=== PATIENT | female | born 1985 | race Caucasian/White ===

== ENCOUNTER 2018-03-29 14:51 | Emergency (ER) | payer SELFPAY ==
--- NOTE | 2018-03-29 15:20 | EDM.PDOC ---
ED HPI GENERAL MEDICAL PROBLEM - General Chief Complaint: Genitourinary Problem Stated Complaint: POSSIBLE UTI Time Seen by Provider: 03/29/18 15:02 Source of Information: Reports: Patient History Limitations: Reports: No Limitations - History of Present Illness INITIAL COMMENTS - FREE TEXT/NARRATIVE: HISTORY AND PHYSICAL: History of present illness: Patient is a 32-year-old female who complains of dysuria for the past 3-4 weeks. She states she had taken some leftover children's antibiotics to help alleviate her symptoms but they are still present. She had not seen a medical provider due to insurance complications. She denies any fever, chills, chest pain, shortness of breath or cough. Denies any abdominal pain, nausea, vomiting, diarrhea or constipation. She denies any concerns for STDs. No vaginal discharge, itching, odor or lesions. Currently on menstraul period Review of systems: As per history of present illness and below otherwise all systems reviewed and negative. Past medical history: As per history of present illness and as reviewed below otherwise noncontributory. Surgical history: As per history of present illness and as reviewed below otherwise noncontributory. Social history: No reported history of drug or alcohol abuse. Family history: As per history of present illness and as reviewed below otherwise noncontributory. Physical exam: General: Well-developed and well-nourished 32-year-old female. Alert and oriented. Nontoxic appearing and in no acute distress. HEENT: Atraumatic, normocephalic, pupils equal and reactive bilaterally, negative for conjunctival pallor or scleral icterus, mucous membranes moist, throat clear, neck supple, nontender, trachea midline. No drooling or trismus noted. No meningeal signs Lungs: Clear to auscultation, breath sounds equal bilaterally, chest nontender. Heart: S1S2, regular rate and rhythm without overt murmur Abdomen: Soft, nondistended, nontender. Negative for masses or hepatosplenomegaly. Negative for costovertebral tenderness. Pelvis: Stable nontender. Genitourinary: Deferred. Rectal: Deferred. Skin: Intact, warm, dry. No lesions or rashes noted. Extremities: Atraumatic, negative for cords or calf pain. Neurovascular unremarkable. Neuro: Awake, alert, oriented. Cranial nerves II through XII unremarkable. Cerebellum unremarkable. Motor and sensory unremarkable throughout. Exam nonfocal. Notes: Diagnostics: UA, HCGU, UC Therapeutics: None Prescription: Bactrim DS x 7 days Pyridium TID Impression: UTI Plan: 1. Take your prescriptions as directed. 2. Tylenol and/or Ibuprofen as needed for pain. Increase your oral fluids 3. Follow up with your primary care provider in the next 1-2 days. Return to the ED as needed as discussed. Definitive disposition and diagnosis as appropriate pending reevaluation and review of above. Duration: Week(s): pelvic area Pain Score (Numeric/FACES): 3 - Related Data Allergies Allergy/AdvReac Type Severity Reaction Status Date / Time No Known Allergies Allergy Verified 03/29/18 15:09 Home Meds: Home Meds Phenazopyridine [Pyridium] 100 mg PO TID PRN 2 Days #6 tab 03/29/18 [Rx] Sulfamethoxazole/Trimethoprim [Bactrim Ds Tablet] 1 each PO BID 10 Days #20 tablet 03/29/18 [Rx] ED ROS GENERAL - Review of Systems Review Of Systems: ROS reveals no pertinent complaints other than HPI. ED EXAM, RENAL/ - Physical Exam Exam: See Below (See dictation) Course - Vital Signs Last Recorded V/S: Last Vital Signs Temp 97.7 F 03/29/18 15:10 Pulse 95 03/29/18 15:10 Resp 15 03/29/18 15:10 BP 108/64 03/29/18 15:10 Pulse Ox 99 03/29/18 15:10 - Orders/Labs/Meds Orders: Active Orders 24 hr Category Date Time Status CULTURE URINE [RM] Stat Lab 03/29/18 15:38 Ordered HCG QUALITATIVE,URINE [URCHEM] Stat Lab 03/29/18 15:05 Ordered UA W/MICROSCOPIC [URIN] Stat Lab 03/29/18 15:05 Ordered Labs: Laboratory Tests 03/29/18 03/29/18 Range/Units 15:05 15:05 Urine Color DARK YELLOW Urine Appearance CLOUDY Urine pH 6.0 (5.0-8.0) Ur Specific Clay >= 1.030 (1.001-1.035) Urine Protein 30 (NEGATIVE) mg/dL Urine Glucose (UA) NEGATIVE (NEGATIVE) mg/dL Urine Ketones NEGATIVE (NEGATIVE) mg/dL Urine Occult Blood LARGE H (NEGATIVE) Urine Nitrite NEGATIVE (NEGATIVE) Urine Bilirubin SMALL H (NEGATIVE) Urine Ictotest NEGATIVE Urine Urobilinogen 0.2 (<2.0) EU/dL Ur Leukocyte Esterase SMALL (NEGATIVE) Urine RBC TOO NUMEROUS TO CT H (0-2/HPF) Urine WBC 65-70 (0-5/HPF) Ur Epithelial Cells FEW (NONE-FEW) Urine Bacteria FEW (NEGATIVE) Urine Mucus LIGHT (NONE-MOD) Urine HCG, Qual NEGATIVE (NEGATIVE) Departure - Departure Time of Disposition: 15:41 Disposition: Home, Self-Care 01 Clinical Impression: UTI, Urinary tract infectious disease - Discharge Information Prescriptions: Phenazopyridine [Pyridium] 100 mg PO TID PRN 2 Days #6 tab PRN Reason: Dysuria Sulfamethoxazole/Trimethoprim [Bactrim Ds Tablet] 1 each PO BID 10 Days #20 tablet Instructions: Urinary Tract Infection, Adult, [id number] Referrals: PCP,None [Primary Care Provider] - Forms: ED Department Discharge Additional Instructions: The following information is given to patients seen in the emergency department who are being discharged to home. This information is to outline your options for follow-up care. We provide all patients seen in our emergency department with a follow-up referral. The need for follow-up, as well as the timing and circumstances, are variable depending upon the specifics of your emergency department visit. If you don't have a primary care physician on staff, we will provide you with a referral. We always advise you to contact your personal physician following an emergency department visit to inform them of the circumstance of the visit and for follow-up with them and/or the need for any referrals to a consulting specialist. The emergency department will also refer you to a specialist when appropriate. This referral assures that you have the opportunity for follow-up care with a specialist. All of these measure are taken in an effort to provide you with optimal care, which includes your follow-up. Under all circumstances we always encourage you to contact your private physician who remains a resource for coordinating your care. When calling for follow-up care, please make the office aware that this follow-up is from your recent emergency room visit. If for any reason you are refused follow-up, please contact the [facility] Emergency Department at and asked to speak to the emergency department charge nurse. [facility] [address] [place] [id number] 1. Take your prescriptions as directed. 2. Tylenol and/or Ibuprofen as needed for pain. Increase your oral fluids 3. Follow up with your primary care provider in the next 1-2 days. Return to the ED as needed as discussed. - My Orders Last 24 Hours: My Active Orders 03/29/18 15:05 HCG QUALITATIVE,URINE [URCHEM] Stat UA W/MICROSCOPIC [URIN] Stat 03/29/18 15:38 CULTURE URINE [RM] Stat - Assessment/Plan Last 24 Hours: My Active Orders 03/29/18 15:05 HCG QUALITATIVE,URINE [URCHEM] Stat UA W/MICROSCOPIC [URIN] Stat 03/29/18 15:38 CULTURE URINE [RM] Stat
== END 2018-03-29 15:45 | disposition home or self-care (01) ==
LOC: MW.ED 14:51
DX: N39.0 Urinary tract infection, site not specified (principal)
CPT/HCPCS: 81001; 81025; 87086; 99282; 99283